=== PATIENT | male | born 1995 | race Caucasian/White ===

== ENCOUNTER 2021-03-06 07:31 | Inpatient (IN) | payer MEDICARE, MEDICAID ==
[~2021-03-06] VITALS: Ht 177.8 cm; Wt 73.8 kg
[2021-03-06] MEDS ORDERED: ZOLPIDEM TARTRATE 10 MG TABLET PO PRN (08:45)
[2021-03-06] MEDS ORDERED: HALOPERIDOL 5 MG TABLET PO PRN (08:45)
[2021-03-06] MEDS ORDERED: METHYLTEST PO SCH ×2 (12:30→21:00)
[2021-03-06] MEDS ORDERED: ESTROGENS ESTERIFIED PO SCH ×2 (12:30→21:00)
[2021-03-06] MEDS: LORazepam 2 MG TABLET PO PRN (12:39)
[2021-03-06] MEDS ORDERED: IBUPROFEN 600 MG TABLET PO PRN (15:15)
[2021-03-06] MEDS ORDERED: MAG HYDROX/AL HYDROX/SIMETH ES 30 ML SUSPENSION UDCUP PO PRN (15:15)
[2021-03-06] MEDS ORDERED: BACITRACIN 28 GM OINTMENT TP PRN (15:15)
[2021-03-06] MEDS ORDERED: ALBUTEROL SULFATE HFA 90 MCG/PUFF 8 GM INHALER IH PRN (15:15)
[2021-03-06] MEDS ORDERED: PETROLATUM,WHITE 28 GM JELLY TP PRN (15:15)
[2021-03-06] MEDS ORDERED: BENZOCAINE/MENTHOL LOZENGE PO PRN (15:15)
[2021-03-06] MEDS ORDERED: CloNIDine HCL 0.1 MG TABLET PO PRN (15:15)
[2021-03-06] MEDS ORDERED: LOPERAMIDE HCL 2 MG CAPSULE PO PRN (15:15)
[2021-03-06] MEDS ORDERED: ACETAMINOPHEN 325 MG TABLET PO PRN (15:15)
[2021-03-06] MEDS ORDERED: OMEPRAZOLE 20 MG CAPSULE PO PRN (15:15)
[2021-03-06] MEDS ORDERED: DOCUSATE SODIUM 100 MG CAPSULE PO PRN (15:15)
[2021-03-06] MEDS ORDERED: MAGNESIUM HYDROXIDE SUSPENSION 30 ML UDCUP PO PRN (15:15)
[2021-03-06] MEDS ORDERED: ONDANSETRON HCL 4 MG TABLET PO PRN (15:15)
[2021-03-06] MEDS ORDERED: INFLUENZA VIRUS VACCINE QVS 2021-22 (6MO+)/PF 60 MCG/0.5 ML SYRINGE IM. ONE (15:45)
[2021-03-06] MEDS: SPIRONOLACTONE 50 MG TABLET PO SCH (17:42)
[2021-03-06] MEDS: ESTRADIOL 1 MG TABLET PO SCH (20:47)
[2021-03-07 07:04] VITALS: BP 74/52
[2021-03-07 07:58] LABS: BASOPHILS % (AUTO) 0.2 % (0.0-2.0); EOSINOPHILS % (AUTO) 1.6 % (1.0-6.0); HEMATOCRIT 38.5 % (41-53); HEMOGLOBIN 13.3 g/dL (13.5-17.5); LYMPHOCYTES # (AUTO) 0.7 K/uL (1.0-4.8); LYMPHOCYTES % (AUTO) 9.2 % (22.0-44.0); MEAN CORPUSCULAR HGB CONC 34.6 G/dL (31.0-37.0); MEAN CORPUSCULAR VOLUME 90 fL (80-100); MONOCYTES # (AUTO) 0.3 K/uL (0.1-1.0); MONOCYTES % (AUTO) 4.4 % (2.0-9.0); NEUTROPHILS # (AUTO) 6.3 K/uL (1.8-7.7); NEUTROPHILS % (AUTO) 84.6 % (40.0-70.0); PLATELET COUNT (AUTO) 189 K/uL (150-450); RED CELL DISTRIBUTION WIDTH 12.7 % (11.5-14.5)
[2021-03-07 08:15] LABS: HEMOGLOBIN A1C 5.1 % (3.8-5.6)
[2021-03-07 08:18] LABS: ALANINE AMINOTRANSFERASE 23 U/L (12-78); ALBUMIN 3.4 g/dL (3.4-5.0); ALKALINE PHOSPHATASE 45 U/L (46-116); ANION GAP 7 mmol/L (8-16); ASPARTATE AMINOTRANSFERASE 12 U/L (15-37); BILIRUBIN,TOTAL 0.3 mg/dL (0.1-1.0); CALCIUM, TOTAL 8.3 mg/dL (8.8-10.5); CARBON DIOXIDE 29 mmol/L (22-29); CHLORIDE 107 mmol/L (98-107); CHOL/HDL RATIO 2.7 (4.2-7.3); CHOLESTEROL 130 mg/dL (131-200); CREATININE 0.82 mg/dL (0.60-1.30); FREE T4 (FREE THYROXINE) 0.88 ng/dL (0.76-1.46); GLOMERULAR FILTR. RATE CALC > 60 mL/min (>60); GLUCOSE,RANDOM 84 mg/dL (70-110); HDL CHOLESTEROL 49 mg/dL (40-60); LDL CHOL (CALC.) 63 mg/dL (0-130); POTASSIUM 3.8 mmol/L (3.5-5.1); SODIUM SERUM 143 mmol/L (136-145); THYROID STIMULATING HORMONE 0.58 uIU/mL (0.36-3.74); TRIGLYCERIDES 89 mg/dL (15-150); UREA NITROGEN, BLOOD 18 mg/dL (7-18)
[2021-03-07] MEDS: FLUoxetine HCL 20 MG CAPSULE PO SCH (09:28)
[2021-03-07] MEDS: ESTRADIOL 1 MG TABLET PO SCH ×2 (09:28→20:23)
[2021-03-07] MEDS: OLANZapine 10 MG TABLET PO SCH (09:28)
[2021-03-07] MEDS: SPIRONOLACTONE 50 MG TABLET PO SCH ×2 (09:28→17:25)
[2021-03-07 16:21] VITALS: BP 98/52
[2021-03-07 17:25] VITALS: BP 106/73
[2021-03-08 01:43] VITALS: BP 103/60
[2021-03-08] MEDS: LORazepam 2 MG TABLET PO PRN ×2 (04:04→20:23)
[2021-03-08] MEDS: FLUoxetine HCL 20 MG CAPSULE PO SCH (09:04)
[2021-03-08] MEDS: SPIRONOLACTONE 50 MG TABLET PO SCH ×2 (09:05→17:11)
[2021-03-08] MEDS: ESTRADIOL 1 MG TABLET PO SCH ×2 (09:05→20:38)
[2021-03-08] MEDS: OLANZapine 10 MG TABLET PO SCH (09:05)
[2021-03-08 16:24] VITALS: BP 103/68
[2021-03-08 17:05] VITALS: BP 131/60
[2021-03-08 19:43] VITALS: BP 100/76
[2021-03-08 20:23] VITALS: BP 110/53
[2021-03-09] MEDS: LORazepam 2 MG TABLET PO PRN ×3 (01:51→22:36)
[2021-03-09 01:52] VITALS: BP 105/63
[2021-03-09 08:18] VITALS: BP 116/74
[2021-03-09] MEDS: OLANZapine 10 MG TABLET PO SCH (09:32)
[2021-03-09] MEDS: ESTRADIOL 1 MG TABLET PO SCH ×2 (09:32→20:28)
[2021-03-09] MEDS: SPIRONOLACTONE 50 MG TABLET PO SCH ×2 (09:33→16:32)
[2021-03-09] MEDS: FLUoxetine HCL 20 MG CAPSULE PO SCH (09:33)
[2021-03-09 16:29] VITALS: BP 111/65
[2021-03-10 01:11] VITALS: BP 124/88
[2021-03-10] MEDS: LORazepam 2 MG TABLET PO PRN ×3 (03:59→20:06)
[2021-03-10 08:30] VITALS: BP 95/62
[2021-03-10] MEDS: SPIRONOLACTONE 50 MG TABLET PO SCH ×2 (09:21→16:37)
[2021-03-10] MEDS: FLUoxetine HCL 20 MG CAPSULE PO SCH (09:21)
[2021-03-10] MEDS: ESTRADIOL 1 MG TABLET PO SCH ×2 (09:21→20:43)
[2021-03-10] MEDS: OLANZapine 10 MG TABLET PO SCH (09:21)
[2021-03-10 16:12] VITALS: BP 112/76
[2021-03-11 00:32] VITALS: BP 115/77
[2021-03-11] MEDS: LORazepam 2 MG TABLET PO PRN ×3 (01:23→20:44)
[2021-03-11 05:25] VITALS: BP 114/76
[2021-03-11 07:03] LABS: COVID AG,FIA SOURCE NASOPHARYNGEAL
[2021-03-11 08:22] VITALS: BP 119/80
[2021-03-11] MEDS: OLANZapine 10 MG TABLET PO SCH (08:59)
[2021-03-11] MEDS: ESTRADIOL 1 MG TABLET PO SCH ×2 (08:59→20:30)
[2021-03-11] MEDS: FLUoxetine HCL 20 MG CAPSULE PO SCH (08:59)
[2021-03-11] MEDS: SPIRONOLACTONE 50 MG TABLET PO SCH ×2 (09:00→17:05)
[2021-03-11 16:16] VITALS: BP 98/57
[2021-03-11 17:06] VITALS: BP 125/87
[2021-03-12 00:11] VITALS: BP 118/82
[2021-03-12] MEDS: LORazepam 2 MG TABLET PO PRN ×2 (01:04→07:58)
[2021-03-12] MEDS: SPIRONOLACTONE 50 MG TABLET PO SCH ×2 (07:57→16:35)
[2021-03-12] MEDS: OLANZapine 10 MG TABLET PO SCH (07:58)
[2021-03-12] MEDS: FLUoxetine HCL 20 MG CAPSULE PO SCH (07:58)
[2021-03-12] MEDS: ESTRADIOL 1 MG TABLET PO SCH ×2 (07:58→20:40)
[2021-03-12 08:27] VITALS: BP 128/70
[2021-03-12 16:11] VITALS: BP 102/61
[2021-03-13 00:43] VITALS: BP 108/64
[2021-03-13] MEDS: LORazepam 2 MG TABLET PO PRN ×2 (02:57→08:51)
[2021-03-13 08:36] VITALS: BP 121/81
[2021-03-13] MEDS: OLANZapine 10 MG TABLET PO SCH (08:50)
[2021-03-13] MEDS: FLUoxetine HCL 20 MG CAPSULE PO SCH (08:50)
[2021-03-13] MEDS: SPIRONOLACTONE 50 MG TABLET PO SCH ×2 (08:50→17:03)
[2021-03-13] MEDS: ESTRADIOL 1 MG TABLET PO SCH ×2 (08:50→20:29)
[2021-03-13 16:17] VITALS: BP 102/64
[2021-03-14] MEDS: LORazepam 2 MG TABLET PO PRN ×2 (01:22→08:57)
[2021-03-14 01:29] VITALS: BP 120/77
[2021-03-14 08:12] VITALS: BP 131/78
[2021-03-14] MEDS: SPIRONOLACTONE 50 MG TABLET PO SCH ×2 (08:45→18:38)
[2021-03-14] MEDS: ESTRADIOL 1 MG TABLET PO SCH ×2 (08:45→20:35)
[2021-03-14] MEDS: FLUoxetine HCL 20 MG CAPSULE PO SCH (08:51)
[2021-03-14] MEDS: OLANZapine 10 MG TABLET PO SCH (08:51)
[2021-03-14 18:39] VITALS: BP 114/78
[2021-03-15] MEDS: LORazepam 2 MG TABLET PO PRN ×2 (00:12→17:12)
[2021-03-15 00:37] VITALS: BP 124/78
[2021-03-15] MEDS: SPIRONOLACTONE 50 MG TABLET PO SCH ×2 (08:14→17:08)
[2021-03-15] MEDS: ESTRADIOL 1 MG TABLET PO SCH ×2 (08:15→20:29)
[2021-03-15] MEDS: FLUoxetine HCL 20 MG CAPSULE PO SCH (08:17)
[2021-03-15] MEDS: OLANZapine 10 MG TABLET PO SCH (08:17)
[2021-03-15 08:24] VITALS: BP 137/77
[2021-03-15 16:17] VITALS: BP 114/61
[2021-03-16 00:26] VITALS: BP 118/77
[2021-03-16] MEDS: LORazepam 2 MG TABLET PO PRN (03:04)
[2021-03-16 08:31] VITALS: BP 128/81
[2021-03-16] MEDS: ESTRADIOL 1 MG TABLET PO SCH ×2 (09:10→20:17)
[2021-03-16] MEDS: SPIRONOLACTONE 50 MG TABLET PO SCH ×2 (09:10→16:24)
[2021-03-16] MEDS: OLANZapine 10 MG TABLET PO SCH (09:10)
[2021-03-16] MEDS: FLUoxetine HCL 20 MG CAPSULE PO SCH (09:10)
[2021-03-16 17:02] VITALS: BP 112/75
[2021-03-17] MEDS: LORazepam 2 MG TABLET PO PRN ×2 (00:14→08:44)
[2021-03-17 00:16] VITALS: BP 109/67
[2021-03-17 08:21] VITALS: BP 109/88
[2021-03-17] MEDS: OLANZapine 10 MG TABLET PO SCH (08:41)
[2021-03-17] MEDS: FLUoxetine HCL 20 MG CAPSULE PO SCH (08:42)
[2021-03-17] MEDS: SPIRONOLACTONE 50 MG TABLET PO SCH ×2 (08:42→17:17)
[2021-03-17] MEDS: ESTRADIOL 1 MG TABLET PO SCH ×2 (08:43→20:34)
[2021-03-17 16:47] VITALS: BP 119/72
[2021-03-18] MEDS: LORazepam 2 MG TABLET PO PRN ×3 (00:17→20:40)
[2021-03-18 02:34] VITALS: BP 119/71
[2021-03-18 07:32] LABS: COVID AG,FIA SOURCE NASOPHARYNGEAL
[2021-03-18 08:46] VITALS: BP 136/82
[2021-03-18] MEDS: FLUoxetine HCL 20 MG CAPSULE PO SCH (08:46)
[2021-03-18] MEDS: ESTRADIOL 1 MG TABLET PO SCH ×2 (08:46→20:40)
[2021-03-18] MEDS: OLANZapine 10 MG TABLET PO SCH (08:47)
[2021-03-18] MEDS: SPIRONOLACTONE 50 MG TABLET PO SCH ×2 (08:47→18:21)
[2021-03-18 16:12] VITALS: BP 104/57
[2021-03-18 16:15] VITALS: BP 144/80
[2021-03-19] MEDS: LORazepam 2 MG TABLET PO PRN ×2 (03:50→16:36)
[2021-03-19 03:52] VITALS: BP 119/89
[2021-03-19 08:32] VITALS: BP 120/80
[2021-03-19] MEDS: SPIRONOLACTONE 50 MG TABLET PO SCH ×2 (08:41→16:09)
[2021-03-19] MEDS: ESTRADIOL 1 MG TABLET PO SCH ×2 (08:42→18:07)
[2021-03-19] MEDS: OLANZapine 10 MG TABLET PO SCH (08:43)
[2021-03-19] MEDS: FLUoxetine HCL 20 MG CAPSULE PO SCH (08:43)
[2021-03-19 16:09] VITALS: BP 107/55
[2021-03-20] MEDS: LORazepam 2 MG TABLET PO PRN (02:54)
[2021-03-20 02:57] VITALS: BP 122/79
[2021-03-20] MEDS: SPIRONOLACTONE 50 MG TABLET PO SCH ×2 (08:33→16:08)
[2021-03-20] MEDS: ESTRADIOL 1 MG TABLET PO SCH ×2 (08:33→20:15)
[2021-03-20] MEDS: FLUoxetine HCL 20 MG CAPSULE PO SCH (08:34)
[2021-03-20] MEDS: OLANZapine 10 MG TABLET PO SCH (08:35)
[2021-03-20 11:13] VITALS: BP 127/72
[2021-03-20 16:09] VITALS: BP 106/55
[2021-03-21 00:48] VITALS: BP 121/77
[2021-03-21 08:27] VITALS: BP 124/84
[2021-03-21] MEDS: ESTRADIOL 1 MG TABLET PO SCH ×2 (08:46→20:31)
[2021-03-21] MEDS: SPIRONOLACTONE 50 MG TABLET PO SCH ×2 (08:47→20:31)
[2021-03-21] MEDS: OLANZapine 10 MG TABLET PO SCH (08:47)
[2021-03-21] MEDS: FLUoxetine HCL 20 MG CAPSULE PO SCH (08:47)
[2021-03-21 16:14] VITALS: BP 100/53
[2021-03-21 19:29] VITALS: BP 115/75
[2021-03-22 04:18] VITALS: BP 109/75
[2021-03-22] MEDS: ESTRADIOL 1 MG TABLET PO SCH ×2 (08:22→20:18)
[2021-03-22] MEDS: FLUoxetine HCL 20 MG CAPSULE PO SCH (08:23)
[2021-03-22] MEDS: SPIRONOLACTONE 50 MG TABLET PO SCH ×3 (08:24→17:08)
[2021-03-22 08:52] VITALS: BP 131/90
[2021-03-22] MEDS: OLANZapine 10 MG TABLET PO SCH (09:00)
[2021-03-22 16:23] VITALS: BP 104/64
[2021-03-23 05:43] VITALS: BP 118/77
[2021-03-23 08:19] VITALS: BP 122/84
[2021-03-23] MEDS: FLUoxetine HCL 20 MG CAPSULE PO SCH (08:42)
[2021-03-23] MEDS: OLANZapine 10 MG TABLET PO SCH (08:42)
[2021-03-23] MEDS: ESTRADIOL 1 MG TABLET PO SCH ×2 (08:43→20:18)
[2021-03-23] MEDS: SPIRONOLACTONE 50 MG TABLET PO SCH ×2 (08:43→17:02)
[2021-03-24 03:06] VITALS: BP 127/83
[2021-03-24] MEDS: OLANZapine 10 MG TABLET PO SCH (08:18)
[2021-03-24] MEDS: FLUoxetine HCL 20 MG CAPSULE PO SCH (08:18)
[2021-03-24] MEDS: ESTRADIOL 1 MG TABLET PO SCH ×2 (08:19→20:40)
[2021-03-24 08:32] LABS: COVID AG,FIA SOURCE NASOPHARYNGEAL
[2021-03-24] MEDS: SPIRONOLACTONE 50 MG TABLET PO SCH ×2 (09:00→17:12)
[2021-03-24 09:51] VITALS: BP 133/84
[2021-03-24 16:14] VITALS: BP 96/61
[2021-03-24 17:15] VITALS: BP 116/76
[2021-03-25 03:31] VITALS: BP 132/66
[2021-03-25 08:17] VITALS: BP 126/87
[2021-03-25] MEDS: FLUoxetine HCL 20 MG CAPSULE PO SCH (08:36)
[2021-03-25] MEDS: OLANZapine 10 MG TABLET PO SCH (08:36)
[2021-03-25] MEDS: SPIRONOLACTONE 50 MG TABLET PO SCH ×2 (08:36→16:51)
[2021-03-25] MEDS: ESTRADIOL 1 MG TABLET PO SCH ×2 (08:37→20:18)
[2021-03-25 16:24] VITALS: BP 118/85
[2021-03-26 01:01] VITALS: BP 131/76
[2021-03-26] MEDS: OLANZapine 10 MG TABLET PO SCH (08:00)
[2021-03-26] MEDS: ESTRADIOL 1 MG TABLET PO SCH (08:01)
[2021-03-26] MEDS: FLUoxetine HCL 20 MG CAPSULE PO SCH (08:01)
[2021-03-26] MEDS: SPIRONOLACTONE 50 MG TABLET PO SCH (08:01)
[2021-03-26 08:31] VITALS: BP 134/80
[2021-03-26] MEDS ORDERED: SPIR50TA27 PO ×2 (09:33→09:34)
[2021-03-26] MEDS ORDERED: ESTR-95 PO ×2 (09:34→09:35)
[2021-03-26] MEDS ORDERED: PROV2.5 PO (09:35)
[2021-03-26] MEDS ORDERED: FLUO20CA36 PO (09:36)
[2021-03-26] MEDS ORDERED: OLAN10TA74 PO (09:37)
== END 2021-03-26 13:00 | disposition home or self-care (01) | DRG 885 ==
LOC: B2X 11:40
PROVIDERS: ADMIT Psychiatry & Neurology Psychiatry; ATTEND Psychiatry & Neurology Psychiatry
DX: F31.9 Bipolar disorder, unspecified (principal); R45.851 Suicidal ideations; F41.9 Anxiety disorder, unspecified; F64.9 Gender identity disorder, unspecified; F20.9 Schizophrenia, unspecified; F12.90 Cannabis use, unspecified, uncomplicated; G47.00 Insomnia, unspecified; K59.00 Constipation, unspecified; Z20.822 Contact with and (suspected) exposure to COVID-19; Z72.89 Other problems related to lifestyle; Z71.41 Alcohol abuse counseling and surveillance of alcoholic
CPT/HCPCS: 80053; 80061; 83036; 84436; 84439; 84443; 85025; G0480